=== PATIENT | male | born 1995 | race Caucasian/White ===

== ENCOUNTER 2018-03-01 00:40 | Emergency (ER) | payer SELFPAY ==
[2018-03-01 00:54] VITALS: BP 158/107; PULSE 100; O2SAT 97
--- NOTE | 2018-03-01 01:12 | ERPHSYRPT ---
- History of Present Illness Time Seen by Provider: 03/01/18 01:00 Source: patient Exam Limitations: no limitations Patient Subjective Stated Complaint: toothache Triage Nursing Assessment: Patient ambulated into ER and transferred self to bed. Patient complains of right sided jaw/tooth pain. Patient states he has a chipped tooth possibly causing his pain. Patient rates pain 10/10. Patient states pain is constant stabbing and is very uncomfortable. Patient A+O x 3. Physician History: 22 y/o white male presents with right upper molar pain from dental infection and fx molars. has been present for a couple of months intermittently. suddenly became much worse last pm. pt is allergic to pcn but can take amoxicillin. Timing/Duration: gradual onset Severity: mild ENT Location: dental (right upper molars) Prearrival Treatment: no prearrival treatment Modifying Factors: Improves With: other (chewing worsens) Associated Symptoms: facial pain/swelling, jaw pain Allergies/Adverse Reactions: aspirin Allergy (Verified 03/01/18 00:55) latex Allergy (Verified 03/01/18 00:55) Penicillins Allergy (Verified 03/01/18 00:55) morphine Adverse Reaction (Verified 03/01/18 00:55) Hx Tetanus, Diphtheria Vaccination/Date Given: Yes Hx Influenza Vaccination/Date Given: No Hx Pneumococcal Vaccination/Date Given: No Immunizations Up to Date: Yes - Review of Systems Constitutional: No Symptoms Eyes: No Symptoms Ears, Nose, & Throat: Other (dental pain) Respiratory: No Symptoms Cardiac: No Symptoms Abdominal/Gastrointestinal: No Symptoms Genitourinary Symptoms: No Symptoms Musculoskeletal: No Symptoms Skin: No Symptoms Neurological: No Symptoms Psychological: No Symptoms Endocrine: No Symptoms Hematologic/Lymphatic: No Symptoms Immunological/Allergic: No Symptoms All Other Systems: Reviewed and Negative - Past Medical History Pertinent Past Medical History: Yes Neurological History: Seizures ENT History: No Pertinent History Cardiac History: Hypertension Respiratory History: Asthma Endocrine Medical History: No Pertinent History Musculoskeletal History: No Pertinent History GI Medical History: No Pertinent History History: No Pertinent History Psycho-Social History: No Pertinent History Male Reproductive Disorders: No Pertinent History Other Medical History: Platelet malfuction disorder - Past Surgical History Past Surgical History: Yes Neuro Surgical History: Other Cardiac: No Pertinent History Respiratory: No Pertinent History Gastrointestinal: No Pertinent History Genitourinary: No Pertinent History Musculoskeletal: No Pertinent History Male Surgical History: No Pertinent History Other Surgical History: Vagal Nerve Implant, Sinus Surgery X 2. Tonsilecotomy - Social History Smoking Status: Never smoker Exposure to second hand smoke: Yes Drug Use: none Patient Lives Alone: Yes - Nursing Vital Signs Nursing Vital Signs: Initial Vital Signs Temperature 98.0 F 03/01/18 00:44 Pulse Rate 100 H 03/01/18 00:44 Respiratory Rate 18 03/01/18 00:44 Blood Pressure 158/107 03/01/18 00:44 O2 Sat by Pulse Oximetry 97 03/01/18 00:44 Pain Scale Pain Intensity 10 - Physical Exam General Appearance: mild distress, alert, anxiety Eye Exam: bilateral eye: normal inspection, PERRL, EOMI Ear Exam: bilateral ear: auricle normal, canal normal, TM normal Nasal Exam: normal inspection Throat Exam: dental tenderness (right upper back 2 molars with decay and fx. no pus) Neck Exam: normal inspection, non-tender, supple, full range of motion, trachea midline Cardiovascular/Respiratory Exam: chest non-tender, normal breath sounds, regular rate/rhythm Abdominal Exam: non-tender, soft Neurologic Exam: alert, oriented x 3, cooperative Skin Exam: normal color, warm, dry SpO2 Interpretation: normal SpO2: 97 Oxygen Delivery: Room Air - Course Nursing assessment & vital signs reviewed: Yes - Progress Progress: unchanged Counseled pt/family regarding: diagnosis, need for follow-up - Departure Time of Disposition: 01:13 Departure Disposition: Home Clinical Impression: Pain, dental, Fractured tooth, Dental infection Condition: Stable Critical Care Time: No Referrals: SHIVA DUFFY [Primary Care Provider] - Additional Instructions: take medications as prescribed. add ibuprofen and tylenol for pain. follow up with dentist for further management Prescriptions: Amoxicillin 500 mg Cap [Amoxil 500 mg] 500 mg PO TID #30 capsule Tramadol HCl 50 mg [Ultram 50 mg] 50 mg PO TID PRN #15 tablet PRN Reason: Pain
[2018-03-01] MEDS ORDERED: ULTRAM 50 MG PO ONE (01:17)
[2018-03-01] MEDS ORDERED: AMOXIL 500 MG PO ONE (01:17)
[2018-03-01] MEDS ORDERED: AMOXIL 500 MG ONE (01:20)
[2018-03-01] MEDS ORDERED: ULTRAM 50 MG ONE (01:20)
== END 2018-03-01 01:27 | disposition home or self-care (01) ==
LOC: ED 00:40
DX: K08.89 Other specified disorders of teeth and supporting structures (principal); S02.5XXA Fracture of tooth (traumatic), initial encounter for closed fracture; K04.7 Periapical abscess without sinus
CPT/HCPCS: 99283; A9270-GY

== ENCOUNTER 2022-10-16 08:26 | Emergency (ER) | payer OTHER ==
[2022-10-16] MEDS ORDERED: DUONEB 0.5-3 MG/3 ml Neb IH ONE ×2 (08:31→08:32)
[2022-10-16] MEDS ORDERED: solu-MEDROL 125 MG, Sterile H2O 10 ml 2 ML IV ONE ×2 (08:37)
[2022-10-16] MEDS ORDERED: Sterile H2O 10 ml IJ ONE (08:40)
[2022-10-16] MEDS ORDERED: solu-MEDROL ONE (08:40)
[2022-10-16 09:04] LABS: Absolute Neutrophil Ct (ANC) 4.92 x10^3/uL (1.4-6.9); BASOPHIL % 0.7 % (0.0-0.4); Basophil (Absolute #) 0.07 x10^3/uL (0-0.4); Eosinophil % 6.7 % (0.00-5.0); Eosinophil (Absolute #) 0.69 x10^3/uL (0-0.5); Hematocrit 43.5 % (42-50); Hemoglobin 14.6 g/dL (12.5-18.0); IMMATURE GRAN # 0.05 x10^3u/L (0.00-0.03); IMMATURE GRAN % 0.5 % (0.00-0.4); Lymphocyte (Absolute #) 3.84 x10^3/uL (1.0-4.6); Lymphocytes % 37.3 % (24.0-44.0); Mean Cell Volume 86.1 fL (78-100); Mean Corpuscular Hemoglobin 28.9 pg (26-32); Mean Corpuscular Hgb Concent. 33.6 g/dL (32-36); Mean Platelet Volume 9.1 fL (7.5-11.0); Monocyte (Absolute #) 0.72 x10^3/uL (0.0-1.3); Neutrophil % 47.8 % (36.0-66.0); Platelet Count 339 x10^3/uL (150-450); Red Blood Count 5.05 x10^6/uL (4.1-5.6); Red Cell Distribution Width 13.3 % (11.5-14.0); White Blood Count 10.3 x10^3/uL (4.0-10.5)
[2022-10-16 09:40] LABS: INFLUENZA A NEGATIVE (NEGATIVE); INFLUENZA B NEGATIVE (NEGATIVE); RESPIRATORY SYNCTIAL VIRUS NEGATIVE (NEGATIVE); SARS-CoV-2 Xpert Express NEGATIVE (NEGATIVE)
--- NOTE | 2022-10-16 09:53 | XRAY ---
CLINICAL HISTORY:Shortness of breath. COMPARISON:Chest x-ray dated 08/05/2013 reviewed. TECHNIQUES:X-ray of the chest, AP 1 View. FINDINGS: A radiographic examination of the chest demonstrates clear lungs. Vagal nerve stimulator is seen on left side. It appears unremarkable. Normal configuration of the mediastinum. The senait are normal in size and position. The cardiac size is normal. Costophrenic and cardiophrenic angles are clear. Retrocardiac and retrosternal spaces are normal. Bony thorax is unremarkable. IMPRESSION: No active pulmonary pathology was detected. Electronically Signed by: Claribel Goodson MD. (10/16/2022 08:48:42 [employer])
[2022-10-16 09:54] LABS: ALBUMIN 4.3 g/dL (3.5-5.0); ALKALINE PHOSPHATASE 92 U/L (38-126); ANION GAP 15.7 MEQ/L (5-15); BLOOD UREA NITROGEN 14 mg/dL (9-20); CHLORIDE 103 mmol/L (98-107); Calcium 9.2 mg/dL (8.4-10.2); Carbon Dioxide 26 mmol/L (22-30); Creatinine 1 0.76 mg/dL (0.66-1.25); EST GLOMERULAR FILTRATION RATE > 60.0 ML/MIN; Glucose 100 mg/dL (74-106); MAGNESIUM 2.2 mg/dL (1.6-2.3); NT PRO BNPII < 20.0 pg/mL (<300); Potassium 3.5 mmol/L (3.5-5.1); SGOT/AST 34 U/L (17-59); SGPT/ALT 39 U/L (0-50); SODIUM 141 mmol/L (137-145); Total Protein 7.5 g/dL (6.3-8.2)
--- NOTE | 2022-10-16 10:59 | ERPHSYRPT ---
- History of Present Illness Time Seen by Provider: 10/16/22 08:36 Source: patient Exam Limitations: no limitations Patient Subjective Stated Complaint: SOB Triage Nursing Assessment: Patient ambulated back to ED and transferred self to bed. Patient A+O 3. Patient's skin flushed and diaphoretic. Patient states he woke up SOB. Patient states he has a hx of asthma, but does not have inhaler or nebulizer. Patient also states he was cleaning with bleach on Sunday when he inhaled bleach and has been having trouble since. Patient complains of non productive cough. Lungs noted to have wheezing throughout. Physician History: 26 years old with history of asthma not taking any medication for quite some time, was cleaning with bleach couple of days ago started to have some irritation in the throat and difficulty breathing with coughing and wheezing which got worse this morning. Patient has loud wheezing all over, tachypneic and mildly tachycardic on presentation. Complaining of chest tightness/spasms, more with activity and better with resting. Denies any fever or chills. Timing/Duration: day(s) (2), gradual onset, worse Severity of Dyspnea-Max: moderate Severity of Dyspnea-Current: moderate Possible Cause: allergen exposure Modifying Factors: Worsens With: activity Associated Symptoms: cough, chest pain/discomfort, wheezing, productive cough, tightness Allergies/Adverse Reactions: aspirin Allergy (Verified 10/16/22 08:31) latex Allergy (Verified 10/16/22 08:31) Penicillins Allergy (Verified 10/16/22 08:31) morphine Adverse Reaction (Verified 10/16/22 08:31) Hx Tetanus, Diphtheria Vaccination/Date Given: Yes Hx Influenza Vaccination/Date Given: No Hx Pneumococcal Vaccination/Date Given: No Immunizations Up to Date: Yes Travel Risk - International Travel Have you traveled outside of the country in past 3 weeks: No - Coronavirus Screening Are you exhibiting any of the following symptoms?: No Close contact with a COVID-19 positive Pt in past 14-21 Days: No - Vaccine Status Have you recieved a Covid-19 vaccination: Yes Upfitter: Unknown - Vaccination Dates Dates if Unknown: na - Review of Systems Constitutional: Fatigue Eyes: No Symptoms Ears, Nose, & Throat: Throat Swelling Respiratory: Cough, Dyspnea, Wheezing Cardiac: No Symptoms Abdominal/Gastrointestinal: No Symptoms Genitourinary Symptoms: No Symptoms Musculoskeletal: No Symptoms Neurological: No Symptoms Psychological: No Symptoms Endocrine: No Symptoms Hematologic/Lymphatic: No Symptoms Immunological/Allergic: No Symptoms - Past Medical History Pertinent Past Medical History: Yes Neurological History: Seizures ENT History: No Pertinent History Cardiac History: Hypertension Respiratory History: Asthma Endocrine Medical History: No Pertinent History Musculoskeletal History: No Pertinent History GI Medical History: No Pertinent History History: No Pertinent History Psycho-Social History: No Pertinent History Male Reproductive Disorders: No Pertinent History Other Medical History: Platelet malfuction disorder - Past Surgical History Past Surgical History: Yes Neuro Surgical History: Other Cardiac: No Pertinent History Respiratory: No Pertinent History Gastrointestinal: No Pertinent History Genitourinary: No Pertinent History Musculoskeletal: No Pertinent History Male Surgical History: No Pertinent History Other Surgical History: Vagal Nerve Implant, Sinus Surgery X 2. Tonsilecotomy - Social History Smoking Status: Never smoker Exposure to second hand smoke: No Drug Use: none Patient Lives Alone: Yes - Nursing Vital Signs Nursing Vital Signs: Initial Vital Signs Pulse Rate 91 H 10/16/22 08:30 Respiratory Rate 19 10/16/22 08:30 Blood Pressure 197/146 10/16/22 08:30 O2 Sat by Pulse Oximetry 96 10/16/22 08:30 Pain Scale Pain Intensity 0 - Physical Exam General Appearance: mild distress, alert Eye Exam: PERRL/EOMI Ears, Nose, Throat Exam: hearing grossly normal, pharyngeal erythema Neck Exam: normal inspection, non-tender, supple, full range of motion Respiratory Exam: respiratory distress, accessory muscle use, wheezing Cardiovascular/Chest Exam: normal heart sounds, regular rate/rhythm Abdominal/Gastrointestinal Exam: soft, normal bowel sounds, No tenderness Extremity Exam: non-tender, normal range of motion Neurologic Exam: alert, oriented x 3, cooperative Skin Exam: normal color SpO2 Interpretation: normal SpO2: 95 O2 Delivery: Room Air - Course EKG Interpreted by Me: RATE (102), Sinus Tach, NORMAL AXIS, NORMAL INTERVALS, NORMAL QRS Ordered Tests: Active Orders 24 hr Category Date Time Status Pipe Straightener STAT Care 10/16/22 08:38 Active EKG-ER Only STAT Care 10/16/22 08:37 Active IV Insertion STAT Care 10/16/22 08:37 Active CHEST 1 VIEW (PORTABLE) Stat Exams 10/16/22 08:49 Completed BLOOD CULTURE Stat Lab 10/16/22 08:55 Received CBC W DIFF Stat Lab 10/16/22 08:40 Completed CMP Stat Lab 10/16/22 08:40 Completed Lactic Acid Stat Lab 10/16/22 08:46 Completed MAGNESIUM Stat Lab 10/16/22 08:40 Completed NT PRO BNPII Stat Lab 10/16/22 08:40 Completed TROPONIN Q4H Lab 10/16/22 08:40 Completed TROPONIN Q4H Lab 10/16/22 12:45 Ordered TROPONIN Q4H Lab 10/16/22 16:45 Ordered Respiratory Therapy Assessment DAILY RT 10/16/22 08:36 Active Medication Summary Discontinued Medications Generic Name Dose Route Start Last Admin Trade Name Freq PRN Reason Stop Dose Admin Albuterol/Ipratropium 3 ml 10/16/22 08:32 10/16/22 08:35 Ipratropium/Albuterol Sulfate 3 Ml Ampul.Neb IH 10/16/22 08:33 3 ml STAT ONE Administration Albuterol/Ipratropium Confirm 10/16/22 08:31 Ipratropium/Albuterol Sulfate 3 Ml Ampul.Neb Administered 10/16/22 08:32 Dose 3 ml IH .STK-MED ONE Methylprednisolone Sodium 0 mg 10/16/22 08:37 10/16/22 08:40 Succinate 125 mg/ Sterile IV 10/16/22 08:38 125 mg Water 2 ml STAT ONE Administration Methylprednisolone Sodium Succinate Confirm 10/16/22 08:40 Methylprednis Sod Succ 125 Mg/2 Ml Vial Administered 10/16/22 08:41 Dose 125 mg .ROUTE .STK-MED ONE Sterile Water Confirm 10/16/22 08:40 Water For Injection,Sterile 10 Ml Vial Administered 10/16/22 08:41 Dose 10 ml IJ .STK-MED ONE Lab/Rad Data: Laboratory Result Diagrams 10/16/22 08:40 10/16/22 08:40 Laboratory Results 10/16/22 10/16/22 10/16/22 Range/Units Unknown 08:46 08:40 WBC (4.0-10.5) x10^3/uL RBC (4.1-5.6) x10^6/uL Hgb (12.5-18.0) g/dL Hct (42-50) % MCV (78-100) fL MCH (26-32) pg MCHC (32-36) g/dL RDW (11.5-14.0) % Plt Count (150-450) x10^3/uL MPV (7.5-11.0) fL Gran % (36.0-66.0) % Immature Gran % (Auto) (0.00-0.4) % Nucleat RBC Rel Count (0.00-0.1) % Eos # (Auto) (0-0.5) x10^3/uL Immature Gran # (Auto) (0.00-0.03) x10^3u/L Absolute Lymphs (auto) (1.0-4.6) x10^3/uL Absolute Monos (auto) (0.0-1.3) x10^3/uL Absolute Nucleated RBC (0.00-0.01) x10^3u/L Lymphocytes % (24.0-44.0) % Monocytes % (0.0-12.0) % Eosinophils % (0.00-5.0) % Basophils % (0.0-0.4) % Absolute Granulocytes (1.4-6.9) x10^3/uL Basophils # (0-0.4) x10^3/uL Sodium (137-145) mmol/L Potassium (3.5-5.1) mmol/L Chloride (98-107) mmol/L Carbon Dioxide (22-30) mmol/L Anion Gap (5-15) MEQ/L BUN (9-20) mg/dL Creatinine (0.66-1.25) mg/dL Estimated GFR ML/MIN Glucose (74-106) mg/dL Lactic Acid 1.1 (0.4-2.0) Calcium (8.4-10.2) mg/dL Magnesium (1.6-2.3) mg/dL Total Bilirubin (0.2-1.3) mg/dL AST (17-59) U/L ALT (0-50) U/L Alkaline Phosphatase (38-126) U/L Troponin I < 0.012 (0.000-0.034) ng/mL NT-Pro-B Natriuret Pep (<300) pg/mL Serum Total Protein (6.3-8.2) g/dL Albumin (3.5-5.0) g/dL Influenza Type A Ag NEGATIVE (NEGATIVE) Influenza Type B Ag NEGATIVE (NEGATIVE) RSV (PCR) NEGATIVE (NEGATIVE) SARS-CoV-2 (PCR) NEGATIVE (NEGATIVE) 10/16/22 10/16/22 Range/Units 08:40 08:40 WBC 10.3 (4.0-10.5) x10^3/uL RBC 5.05 (4.1-5.6) x10^6/uL Hgb 14.6 (12.5-18.0) g/dL Hct 43.5 (42-50) % MCV 86.1 (78-100) fL MCH 28.9 (26-32) pg MCHC 33.6 (32-36) g/dL RDW 13.3 (11.5-14.0) % Plt Count 339 (150-450) x10^3/uL MPV 9.1 (7.5-11.0) fL Gran % 47.8 (36.0-66.0) % Immature Gran % (Auto) 0.5 H (0.00-0.4) % Nucleat RBC Rel Count 0.0 (0.00-0.1) % Eos # (Auto) 0.69 H (0-0.5) x10^3/uL Immature Gran # (Auto) 0.05 H (0.00-0.03) x10^3u/L Absolute Lymphs (auto) 3.84 (1.0-4.6) x10^3/uL Absolute Monos (auto) 0.72 (0.0-1.3) x10^3/uL Absolute Nucleated RBC 0.00 (0.00-0.01) x10^3u/L Lymphocytes % 37.3 (24.0-44.0) % Monocytes % 7.0 (0.0-12.0) % Eosinophils % 6.7 H (0.00-5.0) % Basophils % 0.7 (0.0-0.4) % Absolute Granulocytes 4.92 (1.4-6.9) x10^3/uL Basophils # 0.07 (0-0.4) x10^3/uL Sodium 141 (137-145) mmol/L Potassium 3.5 (3.5-5.1) mmol/L Chloride 103 (98-107) mmol/L Carbon Dioxide 26 (22-30) mmol/L Anion Gap 15.7 H (5-15) MEQ/L BUN 14 (9-20) mg/dL Creatinine 0.76 (0.66-1.25) mg/dL Estimated GFR > 60.0 ML/MIN Glucose 100 (74-106) mg/dL Lactic Acid (0.4-2.0) Calcium 9.2 (8.4-10.2) mg/dL Magnesium 2.2 (1.6-2.3) mg/dL Total Bilirubin 0.50 (0.2-1.3) mg/dL AST 34 (17-59) U/L ALT 39 (0-50) U/L Alkaline Phosphatase 92 (38-126) U/L Troponin I (0.000-0.034) ng/mL NT-Pro-B Natriuret Pep < 20.0 (<300) pg/mL Serum Total Protein 7.5 (6.3-8.2) g/dL Albumin 4.3 (3.5-5.0) g/dL Influenza Type A Ag (NEGATIVE) Influenza Type B Ag (NEGATIVE) RSV (PCR) (NEGATIVE) SARS-CoV-2 (PCR) (NEGATIVE) - Progress Progress: improved, re-examined Air Movement: good Progress Note: 10/16/22 10:57 26 years old with history of asthma not taking any medication for quite some time, was cleaning with bleach couple of days ago started to have some irritation in the throat and difficulty breathing with coughing and wheezing which got worse this morning. Patient has loud wheezing all over, tachypneic and mildly tachycardic on presentation. Complaining of chest tightness/spasms, more with activity and better with resting. Denies any fever or chills. Is given DuoNeb and Solu-Medrol with remarkable turnaround/recovery and ambulating in the ER without any limitation. Minimal wheezing on the auscultation. Tachypnea and tachycardia improved. Work-up showed normal white count, unremarkable chemistries, negative troponins and chest x-ray negative for any acute cardiopulmonary findings. I believe patient has had an exacerbation and does not need any further work-up with more troponin and less likely PE. I would give him short course of steroid and inhaler to go home and outpatient follow-up. Discussed signs symptoms of worsening needing return to ER which patient seems understanding. Stable for discharge. Blood Culture(s) Obtained: Yes Antibiotics given: No Counseled pt/family regarding: lab results, diagnosis, need for follow-up, rad results Medical Desision Making - Independent Historian Additional History obtained from: Spouse - Diagnostic Testing Diagnostic test were ordered, analyzed, and reviewed by me: Yes Radiological Interpretation: Reviewed by me, Teleradiologist Report - Risk of complications The pt has a mod risk of morbidity or mortality based on: Need for prescription drug management - Departure Departure Disposition: Home Clinical Impression: Asthma exacerbation attacks Condition: Stable Critical Care Time: No Referrals: DOCTOR,NO FAMILY [Primary Care Provider] - Follow up/PCP as directed NAYELI CARTER MD [ACTIVE STAFF] - Follow up/PCP as directed (Call for appointment for reevaluation tomorrow) Instructions: Asthma, Adult (DC), Shortness of Breath (Dyspnea) (DC) Additional Instructions: Use inhaler as recommended. Stay away from allergens. Follow-up with primary c are for reevaluation. Return to ER for worsening difficulty breathing/fever chills etc. Prescriptions: Albuterol Sulfate [Albuterol Sulfate Hfa] 8.5 gm IH Q6H PRN 7 Days #1 inh PRN Reason: Cough Prednisone 20 mg [Deltasone 20 mg] 60 mg PO DAILY 5 Days #15 tablet
[2022-10-16 11:52] VITALS: BP 169/99; PULSE 80; O2SAT 96
== END 2022-10-16 11:52 | disposition home or self-care (01) ==
LOC: ED 08:26
DX: J45.901 Unspecified asthma with (acute) exacerbation (principal); I10 Essential (primary) hypertension; Z79.52 Long term (current) use of systemic steroids; R06.82 Tachypnea, not elsewhere classified; R00.0 Tachycardia, unspecified; R07.9 Chest pain, unspecified
CPT/HCPCS: 0241U; 36000; 36415; 71045; 80053; 83605; 83735; 83880; 84484; 85025; 87040; 93005; 93041; 94640; 96374; 99284; J2930; A9270-GY